=== PATIENT | female | born 1960 | race Caucasian/White ===

== ENCOUNTER 2017-09-11 17:03 | Emergency (ER) | payer BC ==
[2017-09-11 18:39] LABS: Bilirubin Negative (Negative); Blood, Urine Negative (Negative); Clarity CLEAR (Clear); Glucose, Urine (Dipstick) Negative (Negative); Leukocyte Negative (Negative); Nitrite Negative (Negative); Protein, Urine (Dipstick) Negative (Neg-Trace); Specific Gravity, Urine 1.005 (1.002-1.036); Urobilinogen 0.2 mg/dL (0.2-1.0)
[2017-09-11 19:23] LABS: #Basophils 0.1 thou/uL (0.0-0.2); #Eosinphils 0.2 thou/uL (0.0-0.7); #Lymphocytes 1.9 thou/uL (1.20-3.40); #Monocytes 0.6 thou/uL (0.11-0.59); #Neutrophils 3.8 thou/uL (1.40-6.50); %Basophils 1.1 % (0.0-1.0); %Eosinophils 2.5 % (0.0-10.0); %Lymphocytes 29.1 % (21.0-51.0); %Monocytes 9.7 % (0.0-10.0); %Neutrophils 57.7 % (42.0-75.0); Hemoglobin 11.9 g/dL (12.0-16.0); Mean Corpuscular HGB CONC 33.7 g/dL (32.0-36.0); Mean Corpuscular Hemoglobin 30.1 pg (27.0-31.0); Mean Corpuscular Volume 89.3 fl (81.0-99.0); Mean Platelet Volume 6.9 fL (7.4-10.4); Platelet Count 207 thou/uL (130-400); RBC Distribution Width 12.5 % (11.5-14.5); Red Blood Cell (RBC) Count 3.97 mill/uL (4.20-5.40); White Blood Cell (WBC) Count 6.6 thou/uL (4.8-10.8)
[2017-09-11 19:47] LABS: ALT (SGPT) 33 U/L (8-55); AST (SGOT) 32 U/L (5-34); Albumin 3.9 g/dL (3.5-5.0); Alkaline Phosphatase 57 U/L (40-150); Anion Gap 12 mmol/L (10-20); BUN (Urea Nitrogen) 14 mg/dL (9.8-20.1); Bilirubin, Total 0.3 mg/dL (0.2-1.2); Calc. Creatinine Clearance 0 mL/min (70-130); Calcium 9.3 mg/dL (7.8-10.44); Carbon Dioxide 26 mmol/L (22-29); Chloride 107 mmol/L (98-107); Estimated GFR-MDRD 67; Globulin 2.6 g/dL (2.4-3.5); Glucose 83 mg/dL (70-105); Potassium 3.7 mmol/L (3.5-5.1); Protein, Total 6.5 g/dL (6.0-8.3); Sodium 141 mmol/L (136-145)
[2017-09-11 19:58] LABS: Troponin I 0.011 ng/mL (< 0.028)
== END 2017-09-11 20:20 | disposition home or self-care (01) ==
LOC: ERS 17:03
DX: R60.0 Localized edema (principal); F41.9 Anxiety disorder, unspecified; F32.9 Major depressive disorder, single episode, unspecified; Z79.899 Other long term (current) drug therapy
CPT/HCPCS: 80053; 81003; 82553; 84484; 85025; 93005; 94760

== ENCOUNTER → 2017-10-27 | Outpatient (CLI) | payer OTHER | LOC: BICMRI 11:19 | PROVIDERS: ATTEND Orthopaedic Surgery | DX: M25.561 Pain in right knee (principal); M71.21 Synovial cyst of popliteal space [Baker], right knee; M94.261 Chondromalacia, right knee ==

== ENCOUNTER 2018-03-02 07:34 | Outpatient (CLI) | payer OTHER ==
--- NOTE | 2018-03-02 10:04 | MRI ---
MRI RIGHT SHOULDER WITHOUT CONTRAST: Date: 03/02/18 HISTORY: M75.11, tear right rotator cuff. COMPARISON: None. FINDINGS: Biceps Tendon: Intraarticular and extraarticular biceps tendon are both normal. Labrum: There is a very subtle posterior inferior and posterior superior chondral labral separation. Rotator Cuff: The subscapularis is moderately tendinotic. There is moderate bursal surface fraying of the supraspin atus tendon. No full thickness perforation. The footplate is intact. Bones: There is moderate degenerative disease of acromioclavicular joint. There is hyperemia of the distal c lavicle. Glenoid version is normal. There is mild thickening of the coracoacromial ligament. Soft Tissues: Moderate subacromial/subdeltoid bursal effusion. Muscles: Muscle signal and bulk is normal. IMPRESSION: 1. Moderate bursal surface fraying of supraspinatus tendon, which may be sequelae of a thickened cor acoacromial ligament. There is moderate underlying subacromial/subdeltoid bursal effusion. 2. No evidence of synovitis. 3. No full thickness perforation. 4. Very subtle chondral labral tear of the posterior labrum without separation. POS: [facility]
== END 2018-03-02 07:35 | disposition home or self-care (01) ==
LOC: TBSIIMAG 07:34
PROVIDERS: ATTEND Orthopaedic Surgery
DX: M75.101 Unspecified rotator cuff tear or rupture of right shoulder, not specified as traumatic (principal); S43.401A Unspecified sprain of right shoulder joint, initial encounter

== ENCOUNTER 2018-11-30 13:40 | Emergency (ER) | payer OTHER ==
[~2018-11-30 13:40] MED LIST: ISOVUE-370 76%-LOCM 1 ML ONE
[2018-11-30 15:57] LABS: #Eosinphils 0.1 thou/uL (0.0-0.7); #Lymphocytes 0.8 thou/uL (1.20-3.40); #Monocytes 0.7 thou/uL (0.11-0.59); %Basophils 0.2 % (0.0-1.0); %Eosinophils 1.5 % (0.0-10.0); %Lymphocytes 11.7 % (21.0-51.0); %Monocytes 10.3 % (0.0-10.0); %Neutrophils 76.3 % (42.0-75.0); Hemoglobin 13.5 g/dL (12.0-16.0); Mean Corpuscular HGB CONC 32.2 g/dL (32.0-36.0); Mean Corpuscular Hemoglobin 28.8 pg (27.0-31.0); Mean Corpuscular Volume 89.6 fL (78.0-98.0); Mean Platelet Volume 7.5 fL (7.4-10.4); Platelet Count 173 thou/uL (130-400); RBC Distribution Width 12.4 % (11.5-14.5); Red Blood Cell (RBC) Count 4.68 mill/uL (4.20-5.40); White Blood Cell (WBC) Count 6.6 thou/uL (4.8-10.8)
[2018-11-30 16:17] LABS: Bilirubin Small (Negative); Blood, Urine Negative (Negative); Clarity CLOUDY (Clear); Glucose, Urine (Dipstick) Negative (Negative); Leukocyte Negative (Negative); Nitrite Negative (Negative); Protein, Urine (Dipstick) Trace mg/dL (Neg-Trace); Specific Gravity, Urine 1.027 (1.002-1.036)
[2018-11-30 16:19] LABS: ALT (SGPT) 18 U/L (8-55); AST (SGOT) 28 U/L (5-34); Albumin 4.3 g/dL (3.5-5.0); Alkaline Phosphatase 50 U/L (40-150); Anion Gap 15 mmol/L (10-20); BUN (Urea Nitrogen) 13 mg/dL (9.8-20.1); Bilirubin, Total 0.3 mg/dL (0.2-1.2); Calc. Creatinine Clearance 0 mL/min (70-130); Calcium 9.6 mg/dL (7.8-10.44); Carbon Dioxide 28 mmol/L (22-29); Chloride 102 mmol/L (98-107); Estimated GFR-MDRD 66; Globulin 2.7 g/dL (2.4-3.5); Glucose 83 mg/dL (70-105); Potassium 3.8 mmol/L (3.5-5.1); Sodium 141 mmol/L (136-145)
[2018-11-30] MEDS ORDERED: Ondansetron PF 4 MG/2 ML Vial ONE (16:37)
[2018-11-30] MEDS ORDERED: Dicyclomine 20 MG TAB ONE (16:37)
[2018-11-30] MEDS ORDERED: Ketorolac Tromethamine 30 MG/ML VIAL ONE (16:37)
--- NOTE | 2018-11-30 17:25 | CT ---
CT OF THE ABDOMEN AND PELVIS WITH IV CONTRAST: 11/30/18 INDICATION: History of abdominal pain and diarrhea. COMPARISON: Prior exam dated 07/30/18. FINDINGS: Lung bases are clear. There is a subcentimeter hypodensity within the posterior right hepatic lobe which is stable. No new focal hypodensity is evident. Bilateral renal cysts are stable. Adrenal glands, pancreas and spleen appear within normal limits. There is a normal appendix in the right lower quadrant. Bladder is grossly decompressed. There is flu id density seen within the colon which can be seen with diarrheal state. No free fluid is evident. No enlarged lymph nodes or free air is demonstrated. No definite acute osseous abnormality is evident. IMPRESSION: 1. Low density fluid seen within the region of the colon can be seen with diarrheal state. 2. Stable hepatic and renal hypodensities suspicious for tiny cysts. 3. Other findings as above. POS: [facility]
== END 2018-11-30 18:18 | disposition home or self-care (01) ==
LOC: ERS 13:40
DX: R11.2 Nausea with vomiting, unspecified (principal); R19.7 Diarrhea, unspecified; K58.9 Irritable bowel syndrome, unspecified; F41.9 Anxiety disorder, unspecified; F32.9 Major depressive disorder, single episode, unspecified; Z79.899 Other long term (current) drug therapy
CPT/HCPCS: 36415; 74177; 80053; 81003; 85025; 96361; 96372; 96374; 96375; J1885; J2405; Q9966

== ENCOUNTER 2021-12-31 15:16 | Outpatient (CLI) | payer OTHER | END 2021-12-31 15:17 | disposition home or self-care (01) | LOC: BICMAMMO 15:16 | PROVIDERS: ATTEND Internal Medicine | DX: Z12.31 Encounter for screening mammogram for malignant neoplasm of breast (principal); Z80.3 Family history of malignant neoplasm of breast | CPT/HCPCS: 77063; 77067 ==

== ENCOUNTER 2024-02-17 08:05 | Outpatient (CLI) | payer MEDICARE, OTHER | END 2024-02-17 08:06 | disposition home or self-care (01) | LOC: BICMAMMO 08:05 | PROVIDERS: ATTEND Internal Medicine | DX: Z12.31 Encounter for screening mammogram for malignant neoplasm of breast (principal); Z80.3 Family history of malignant neoplasm of breast | CPT/HCPCS: 77063; 77067 ==

== ENCOUNTER 2024-07-07 12:57 | Outpatient (CLI) | payer MEDICARE, OTHER ==
[~2024-07-07 12:57] MED LIST changes: -ISOVUE-370 76%-LOCM 1 ML ONE; +Iopamidol 370 76% 100 ML VIAL ONE
== END 2024-07-07 12:58 | disposition home or self-care (01) ==
LOC: CT 12:57
PROVIDERS: ATTEND Internal Medicine Cardiovascular Disease
DX: R07.9 Chest pain, unspecified (principal)
CPT/HCPCS: 36415; 71260; 82565; Q9967

== ENCOUNTER 2025-04-18 09:43 | Outpatient (CLI) | payer MEDICARE, OTHER | END 2025-04-18 09:44 | disposition home or self-care (01) | LOC: BICMAMMO 09:43 | PROVIDERS: ATTEND Internal Medicine | DX: Z12.31 Encounter for screening mammogram for malignant neoplasm of breast (principal); Z13.820 Encounter for screening for osteoporosis; Z78.0 Asymptomatic menopausal state; Z80.3 Family history of malignant neoplasm of breast | CPT/HCPCS: 77063; 77067; 77080 ==